=== PATIENT | male | born 1955 | race African-American/Black ===

== ENCOUNTER 2021-05-15 05:09 | Emergency (ER) | payer MEDICARE ==
[~2021-05-15] VITALS: Ht 185.4 cm; Wt 95.0 kg
[~2021-05-15 05:09] MED LIST: AUGMENTIN875 MG OR; CIPRO500 MG OR; CLARITIN-D1 TA1 OR; FLAGYL500 MG OR; FLEXERIL PO; GLIPIZIDE ER10 MG OR; GLUCOPHAGE850 MG OR; LISINOPRIL20 MG OR; LORTAB 5 OR; METFORMIN850 MG PO; PROMETHAZINE25 MG OR; ULTRAM50 M1 PO; ZOFRAN4 MG/TAB PO
[2021-05-15 05:15] VITALS: BP 118/69
[2021-05-15] MEDS ORDERED: PROTONIX40 MG PO (05:40)
[2021-05-15] MEDS ORDERED: ONDANSETRON4 MG PO (05:40)
[2021-05-15] MEDS ORDERED: HTN MED (05:48)
[2021-05-15] MEDS ORDERED: INSULIN (05:48)
[2021-05-15] MEDS ORDERED: CHOLESTEROL (05:49)
== END 2021-05-15 05:40 | disposition left against medical advice (07) ==
LOC: ED 05:09
DX: R10.13 Epigastric pain (principal); I25.10 Atherosclerotic heart disease of native coronary artery without angina pectoris; I10 Essential (primary) hypertension; K29.70 Gastritis, unspecified, without bleeding; Z91.19 Patient's noncompliance with other medical treatment and regimen